=== PATIENT | female | born 1985 | race Caucasian/White ===

== ENCOUNTER → 2018-06-13 08:26 | Outpatient (CLI) | payer BC, SELFPAY ==
--- NOTE | 2018-06-13 08:33 | US_ITS ---
STUDY: ABDOMINAL ULTRASOUND REASON FOR EXAM: Female, 32 years old. Left lower quadrant pain for one year. TECHNIQUE: Transabdominal ultrasound was performed with real-time and static leach scale imaging. TECHNICAL QUALITY: Adequate. COMPARISON: CT of the abdomen, March 14, 2017. FINDINGS: Liver: The liver measures 15.9 cm. There is normal echogenicity of the liver. The bile ducts are within normal limits. There is hepatic color flow. The direction of portal flow is hepatopetal. There is no demonstrated mass lesion. Gallbladder: Normal distended gallbladder. The gallbladder wall measures 2.2 mm. There is a negative sonographic Delgado's sign. There is no pericholecystic fluid. There are no gallstones. Common Bile Duct (C.B.D.): The common bile duct measures 3 mm. Pancreas: Normal size of the head, body and tail of the pancreas. There is normal echogenicity of the pancreas. There is no demonstrated pancreatic mass or cyst. Spleen: Normal size of the spleen. The spleen measures 10.4 cm. Right Kidney: Normal size of the right kidney. The right kidney measures 10.0 cm. Normal renal cortex. The right cortex measures 1.4 cm. There is no demonstrated renal mass or cyst. There is no right hydronephrosis. Left Kidney: Normal size of the left kidney. The left kidney measures 10.1 cm. Normal renal cortex. The left cortex measures 1.4 cm. There is no demonstrated renal mass or cyst. There is no left hydronephrosis. Aorta: There is no abdominal aortic aneurysm. I.V.C.: The IVC is patent. There is no ascites. US/Abdomen Complete IMPRESSION: Normal abdominal ultrasound examination. Electronically Signed: Flaco Kaur DO at 16:55 EST Tel [phone], Service support ,
== END ==
PROVIDERS: Family Provider Nurse Practitioner; PCP Nurse Practitioner; Referring Provider Nurse Practitioner; Visit Provider Nurse Practitioner
DX: R10.9 Unspecified abdominal pain (principal)
CPT/HCPCS: 76700

== ENCOUNTER → 2018-06-19 12:21 | Outpatient (CLI) | payer BC, SELFPAY ==
--- NOTE | 2018-06-19 12:31 | US_ITS ---
STUDY: ULTRASOUND TRANSVAGINAL CLINICAL: Female, 32 years old. Left lower quadrant pain. TECHNIQUE: Transvaginal COMPARISON: None. FINDINGS: Normal uterine size measuring 6.7 cm in maximal craniocaudal dimension. There are no myometrial masses. Normal endometrial thickness measuring 10 mm. There are no endometrial masses, and there is no fluid in the endometrial cavity. Normal uterine cervix. Normal right ovary, measuring 4.8 x 3.2 x 2.6 cm. There are multiple peripherally located subcentimeter cysts. Normal left ovary, measuring 4.8 x 4.4 x 2.5 cm. There are multiple peripherally located subcentimeter cysts. There is no free fluid in the pelvis. The bladder is fluid-filled and distended. US/Pelvic (Non ) IMPRESSION: Mildly enlarged ovaries associated with subcentimeter peripherally located cysts consistent with polycystic ovarian syndrome. Electronically Signed: Tiffanie Miguel MD at 16:23 EST Tel , Service support ,
--- NOTE | 2018-06-19 12:57 | US_ITS ---
STUDY: ULTRASOUND TRANSVAGINAL CLINICAL: Female, 32 years old. Left lower quadrant pain. TECHNIQUE: Transvaginal COMPARISON: None. FINDINGS: Normal uterine size measuring 6.7 cm in maximal craniocaudal dimension. There are no myometrial masses. Normal endometrial thickness measuring 10 mm. There are no endometrial masses, and there is no fluid in the endometrial cavity. Normal uterine cervix. Normal right ovary, measuring 4.8 x 3.2 x 2.6 cm. There are multiple peripherally located subcentimeter cysts. Normal left ovary, measuring 4.8 x 4.4 x 2.5 cm. There are multiple peripherally located subcentimeter cysts. There is no free fluid in the pelvis. The bladder is fluid-filled and distended. US/Transvaginal Non- IMPRESSION: Mildly enlarged ovaries associated with subcentimeter peripherally located cysts consistent with polycystic ovarian syndrome. Electronically Signed: Tiffanie Miguel MD at 16:23 EST Tel , Service support ,
== END ==
PROVIDERS: Family Provider Nurse Practitioner; PCP Nurse Practitioner; Referring Provider Nurse Practitioner; Visit Provider Nurse Practitioner
DX: R10.9 Unspecified abdominal pain (principal)
CPT/HCPCS: 76830; 76856; 93976